=== PATIENT | female | born 1990 | race Two or more races ===

== ENCOUNTER 2020-10-17 09:01 | Emergency (ER) | payer BC ==
[~2020-10-17] VITALS: Ht 160 cm; Wt 57.0 kg
[2020-10-17] MEDS ORDERED: ONDANSETRON HCL 4MG TABLET PO ONE (09:45)
[2020-10-17] MEDS ORDERED: ACETAMINOPHEN 325MG TABLET PO ONE (09:45)
[2020-10-17] MEDS ORDERED: ONDA4TAB5 PO (10:07)
[2020-10-17] MEDS ORDERED: TOPUD PO (10:07)
[2020-10-17 10:57] VITALS: BP 113/69
== END 2020-10-17 11:10 | disposition home or self-care (01) ==
LOC: ER 09:01
DX: A05.9 Bacterial foodborne intoxication, unspecified (principal)
CPT/HCPCS: 99283; Q0162